=== PATIENT | female | born 2000 | race Hispanic/Latino ===

== ENCOUNTER 2019-03-21 21:17 | Emergency (ER) | payer BC, SELFPAY ==
[2019-03-21 22:33] LABS: Urine Blood 3+ (NEG); Urine Glucose NEGATIVE (NEG); Urine Protein 2+ (NEG); Urine pH 7.5 (5.0-7.0)
[2019-03-21 22:50] LABS: Absolute Lymphocytes (CBC) 2.7 K/uL (0.7-4.9); Absolute Monocytes 0.8 K/uL (0.1-1.3); Absolute Neutrophil 9.5 K/uL (1.8-8.0); Basophils % 0.5 % (0-1.3); Eosinophils % 1.7 % (0-4.4); Hematocrit 39.3 % (36.0-45.0); Lymphocytes % 20.3 % (15.3-44.8); Monocytes % 5.8 % (3.3-12.3); RBC Red Blood Cell Count 4.42 M/uL (3.86-4.86)
[2019-03-21] MEDS ORDERED: ONDANSETRON 4 MG/2 ML VIAL ONE (22:52)
[2019-03-21] MEDS ORDERED: MORPHINE 4 MG/ML SYR ONE (22:52)
[2019-03-21 23:04] LABS: Urine Bacteria LOADED /HPF (<20); Urine Culture Reflex Order NOT NEEDED; Urine RBC 20-50 /HPF (NONE SEEN)
[2019-03-21 23:05] LABS: ALT/SGPT 25 U/L (12-78); AST/SGOT 13 U/L (15-37); Albumin 3.5 g/dL (3.4-5.0); Alkaline Phosphatase 83 U/L (45-117); BUN Blood Urea Nitrogen 10 mg/dL (7-18); Bicarbonate 30 mmol/L (21-32); Bilirubin Direct < 0.1 mg/dL (0-0.2); Bilirubin Total 0.2 mg/dL (0.2-1.0); Glucose Level 116 mg/dL (74-106); Lipase 84 U/L (73-393); Potassium 3.9 mmol/L (3.5-5.1); Protein, Total 7.4 g/dL (6.4-8.2); Sodium Level 142 mmol/L (136-145)
[2019-03-22] MEDS ORDERED: KETOROLAC 30 MG/ML INJ ONE (00:33)
--- NOTE | 2019-03-22 00:45 | EDPHYS ---
Physician Documentation [facility] Name: Angelo Harrison Age: 19 yrs Sex: Female : 2000 Arrival Date: 03/21/2019 Time: 21:19 Bed 30 Private MD: ED Physician Derick Coon HPI: 03/21 22:31 This 19 yrs old Female presents to ER via Ambulatory with complaints of Pelvic jmm Pain, Back Pain. 22:31 The patient presents with pelvic pain. Onset: The symptoms/episode began/occurred jmm gradually, 1 week(s) ago. Associated signs and symptoms: Pertinent positives: dysuria. This is a 19 year old female with no chronic medical conditions that presents to the ED with complaints of painful urination for the past week with pelvic pain beginning today. Pain is localized to the left side. Denies vomiting or diarrhea. Admits to vaginal discharge and recent unprotected intercourse. . 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 - Social history:: Smoking status: Patient uses tobacco products, denies chronic smoking, but will smoke occasionally. - Ebola Screening: : No symptoms or risks identified at this time. ROS: 22:31 Constitutional: Negative for fever, chills, and weight loss, Cardiovascular: Negative jmm for chest pain, palpitations, and edema, Respiratory: Negative for shortness of breath, cough, wheezing, and pleuritic chest pain. 22:31 Abdomen/GI: Positive for abdominal pain. 22:31 : Positive for urinary symptoms. 22:31 All other systems are negative. Exam: 22:31 Constitutional: This is a well developed, well nourished patient who is awake, alert, jmm and in no acute distress. Head/Face: atraumatic. Eyes: EOMI, no conjunctival erythema appreciated ENT: Moist Mucus Membranes Neck: Trachea midline, Supple Chest/axilla: Normal chest wall appearance and motion. Cardiovascular: Regular rate and rhythm. No edema appreciated Respiratory: Normal respirations, no respiratory distress appreciated 22:31 Abdomen/GI: Inspection: abdomen appears normal, Bowel sounds: normal, Palpation: soft, mild abdominal tenderness, in the left lower quadrant. 22:31 : Pelvic Exam: External exam: candidal lesions noted to the mons pubis. 22:31 : Pelvic Exam: Speculum exam: no bleeding is noted, no cervicitis, os that is closed, discharge, white. 22:31 Skin: Appearance: Color: normal in color. 22:31 Neuro: Orientation: is normal, Mentation: is normal, Memory: is normal. 22:31 Psych: Behavior/mood is pleasant, cooperative. Vital Signs: 21:31 BP 141 / 96; Pulse 68; Resp 18; Temp 98.3(O); Pulse Ox 99% on R/A; Weight 104.33 kg; tl2 Height 5 ft. 2 in. (157.48 cm); Pain 9/10; 21:53 Weight 106.32 kg; jb5 23:00 BP 114 / 63; Pulse 86; Resp 18; Pulse Ox 99% ; rv 03/22 00:00 BP 132 / 68; Pulse 71; Resp 16; Pulse Ox 100% ; rv 00:45 BP 128 / 78; Pulse 76; Resp 16; Pulse Ox 99% ; rv 03/21 21:53 Body Mass Index 42.87 (106.32 kg, 157.48 cm) jb5 MDM: 03/21 22:31 Patient medically screened. [facility] 03/22 00:43 Data reviewed: vital signs, nurses notes. Counseling: I had a detailed discussion with [facility] the patient and/or guardian regarding: the historical points, exam findings, and any diagnostic results supporting the discharge/admit diagnosis, lab results, radiology results, the need for outpatient follow up, to return to the emergency department if symptoms worsen or persist or if there are any questions or concerns that arise at home. 00:43 ED course: Patient is alert and non toxic in appearance in the ED. Patient treated for [facility] STI due to complaints of discharge and recent unprotected intercourse. Patient's pain is most likely due to cystitis. Patient advised to follow up with pcp or return to the ED if symptoms worsen. . 03/21 21:54 Order name: Urine Dipstick--Ancillary (enter results); Complete Time: 22:48 az 03/21 21:54 Order name: Urine --Ancillary (enter results); Complete Time: 22:48 az 03/21 21:54 Order name: Urine Culture banner 03/21 21:54 Order name: Urine Microscopic Only; Complete Time: 23:30 banner 03/21 22:32 Order name: Basic Metabolic Panel; Complete Time: 23:30 [facility] 03/21 22:32 Order name: CBC with Diff; Complete Time: 23:01 [facility] 03/21 22:32 Order name: Creatinine for Radiology; Complete Time: 23:30 [facility] 03/21 22:32 Order name: Hepatic Function; Complete Time: 23:30 [facility] 03/21 22:32 Order name: Lipase; Complete Time: 23:30 [facility] 03/21 22:32 Order name: GC (GONORR/CHLAMYDIA) Probe [facility] 03/21 22:32 Order name: CT Abd/Pelvis - W/Contrast [facility] 03/21 22:32 Order name: IV Saline Lock; Complete Time: 22:47 [facility] 03/21 22:32 Order name: Labs collected and sent; Complete Time: 22:47 [facility] 03/21 22:44 Order name: Pelvic Exam Setup; Complete Time: 22:51 [facility] Administered Medications: 03/21 22:40 Drug: morphine 4 mg Route: IVP; Site: right antecubital; rv 03/22 00:52 Follow up: Response: Pain is decreased rv 03/21 22:50 Drug: Zofran 4 mg Route: IVP; Site: right antecubital; rv 03/22 00:52 Follow up: Response: Pain is decreased rv 00:20 Drug: Ketorolac 30 mg Route: IVP; Site: right antecubital; ca1 00:53 Follow up: Response: Pain is decreased rv 00:45 Drug: DiFLUcan 150 mg Route: PO; rv 00:53 Follow up: Response: No adverse reaction rv 00:45 Drug: AZITHromycin 1 grams Route: PO; rv 00:53 Follow up: Response: No adverse reaction rv 00:45 Drug: Rocephin (cefTRIAXone) 250 mg Route: IM; Site: right deltoid; rv 00:54 Follow up: Response: No adverse reaction rv Disposition: 03/22/19 00:44 Discharged to Home. Impression: Cystitis. - Condition is Stable. - Discharge Instructions: Urinary Tract Infection, Adult. - Prescriptions for Macrobid 100 mg Oral Capsule - take 1 capsule by ORAL route every 12 hours for 7 days; 14 capsule. Clotrimazole 1 % Topical Cream - Apply to affected area 1 application by TOPICAL route every 12 hours; 15 gram. - Medication Reconciliation Form, Thank You Letter, Antibiotic Education, Prescription Opioid Use form. - Follow up: Private Physician; When: 2 - 3 days; Reason: Recheck today's complaints, Continuance of care, Re-evaluation by your physician. Signatures: Dispatcher [employer] EDMS Derrick Galloway PA PA jmm Knox, Taylor, RN RN tl2 Reza Qiu RN RN rv Sejal Paez RN RN ca1 Corrections: (The following items were deleted from the chart) 00:55 00:44 03/22/2019 00:44 Discharged to Home. Impression: Cystitis. Condition is Stable. rv Forms are Medication Reconciliation Form, Thank You Letter, Antibiotic Education, Prescription Opioid Use. Follow up: Private Physician; When: 2 - 3 days; Reason: Recheck today's complaints, Continuance of care, Re-evaluation by your physician. lindsay
--- NOTE | 2019-03-22 00:45 | ER ---
Nurse's Notes [facility] Name: Angelo Harrison Age: 19 yrs Sex: Female : 2000 Arrival Date: 03/21/2019 Time: 21:19 Bed 30 Private MD: Diagnosis: Cystitis Presentation: 03/21 21:30 Presenting complaint: Patient states: left flank pain that radiates to front since tl2 Wednesday. Reports burning with urination. Denies fever, vomiting. Reports nausea. Transition of care: patient was not received from another setting of care. Onset of symptoms was March 15, 2019. Risk Assessment: Do you want to hurt yourself or someone else? Patient reports no desire to harm self or others. Initial Sepsis Screen: Does the patient meet any 2 criteria? No. Patient's initial sepsis screen is negative. Does the patient have a suspected source of infection? No. Patient's initial sepsis screen is negative. Care prior to arrival: None. 21:30 Method Of Arrival: Ambulatory tl2 21:30 Acuity: KAROL 3 tl2 Triage Assessment: 21:31 General: Appears in no apparent distress. uncomfortable, Behavior is calm, cooperative, tl2 appropriate for age. Pain: Complains of pain in left flank Pain radiates to left lower quadrant. 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 - Social history:: Smoking status: Patient uses tobacco products, denies chronic smoking, but will smoke occasionally. - Ebola Screening: : No symptoms or risks identified at this time. Screenin:06 Abuse screen: Denies threats or abuse. Denies injuries from another. Nutritional rv screening: No deficits noted. Tuberculosis screening: No symptoms or risk factors identified. Fall Risk None identified. Assessment: 22:05 General: Appears in no apparent distress. uncomfortable, Behavior is calm, cooperative. rv Pain: Complains of pain in abdomen and left lower quadrant. Neuro: Level of Consciousness is awake, alert, obeys commands, Oriented to person, place, time, situation. Cardiovascular: Capillary refill < 3 seconds. Respiratory: Airway is patent. GI: Reports lower abdominal pain. : No signs and/or symptoms were reported regarding the genitourinary system. EENT: No signs and/or symptoms were reported regarding the EENT system. Derm: Skin is intact. Musculoskeletal: No signs and/or symptoms reported regarding the musculoskeletal system. 23:27 Reassessment: Patient appears in no apparent distress at this time. Patient and/or rv family updated on plan of care and expected duration. Pain level reassessed. Patient is alert, oriented x 3, equal unlabored respirations, skin warm/dry/pink. patient is for pelvic exam. awaiting ZOHAIB Meza>. Vital Signs: 21:31 BP 141 / 96; Pulse 68; Resp 18; Temp 98.3(O); Pulse Ox 99% on R/A; Weight 104.33 kg; tl2 Height 5 ft. 2 in. (157.48 cm); Pain 9/10; 21:53 Weight 106.32 kg; jb5 23:00 BP 114 / 63; Pulse 86; Resp 18; Pulse Ox 99% ; rv 05 00:00 BP 132 / 68; Pulse 71; Resp 16; Pulse Ox 100% ; rv 00:45 BP 128 / 78; Pulse 76; Resp 16; Pulse Ox 99% ; rv 03/21 21:53 Body Mass Index 42.87 (106.32 kg, 157.48 cm) jb5 ED Course: 03/21 21:19 Patient arrived in ED. es 21:31 Triage completed. tl2 21:31 Arm band placed on right wrist. tl2 21:38 Maria Dolores Poe, RN is Primary Nurse. tl2 21:54 Urine Dipstick--Ancillary (enter results) Sent. jb5 21:54 Urine --Ancillary (enter results) Sent. jb5 22:05 Reza Qiu, MONIKA is Primary Nurse. rv 22:06 Patient has correct armband on for positive identification. Bed in low position. Call rv light in reach. Side rails up X 1. Pulse ox on. NIBP on. 22:22 Derrick Galloway PA is PHCP. [facility] 22:22 Derick Coon MD is Attending Physician. [facility] 22:27 Urine Microscopic Only Sent. rv 22:28 Urine Culture Sent. rv 22:36 Inserted saline lock: 20 gauge in right antecubital area, using aseptic technique. jb5 Blood collected. 22:37 Radiology exam delayed due to lab results not completed at this time. (BUN/Creatinine). vm2 22:47 Basic Metabolic Panel Sent. jb5 22:47 CBC with Diff Sent. jb5 22:47 Creatinine for Radiology Sent. jb5 22:47 Hepatic Function Sent. jb5 22:47 Lipase Sent. jb5 23:36 CT Abd/Pelvis - W/Contrast In Process Unspecified. EDMS 03/22 00:54 No provider procedures requiring assistance completed. IV discontinued, intact, rv bleeding controlled, No redness/swelling at site. Pressure dressing applied. Administered Medications: 03/21 22:40 Drug: morphine 4 mg Route: IVP; Site: right antecubital; rv 03/22 00:52 Follow up: Response: Pain is decreased rv 03/21 22:50 Drug: Zofran 4 mg Route: IVP; Site: right antecubital; rv 03/22 00:52 Follow up: Response: Pain is decreased rv 00:20 Drug: Ketorolac 30 mg Route: IVP; Site: right antecubital; ca1 00:53 Follow up: Response: Pain is decreased rv 00:45 Drug: DiFLUcan 150 mg Route: PO; rv 00:53 Follow up: Response: No adverse reaction rv 00:45 Drug: AZITHromycin 1 grams Route: PO; rv 00:53 Follow up: Response: No adverse reaction rv 00:45 Drug: Rocephin (cefTRIAXone) 250 mg Route: IM; Site: right deltoid; rv 00:54 Follow up: Response: No adverse reaction rv Outcome: 00:44 Discharge ordered by MD. montoya 00:54 Discharged to home ambulatory. rv 00:54 Condition: good 00:54 Discharge instructions given to patient, Instructed on discharge instructions, follow up and referral plans. medication usage, Demonstrated understanding of instructions, follow-up care, medications, Prescriptions given X 2. 00:55 Patient left the ED. rv Signatures: Dispatcher [employer] EDIA Derrick Galloway PA PA jmm Salyer, Edna es Knox, Taylor, RN RN tl2 Taylor Garsia jb5 Shirley Leigh 2 Reza Qiu RN RN rv RandyobSejal RN RN ca1 Corrections: (The following items were deleted from the chart) 03/21 22:06 22:05 GI: No signs and/or symptoms were reported involving the gastrointestinal system. rv rv
[2019-03-22] MEDS ORDERED: FLUCONAZOLE 100 MG TAB ONE (00:53)
[2019-03-22] MEDS ORDERED: AZITHROMYCIN 250 MG TAB ONE (00:53)
[2019-03-22] MEDS ORDERED: WATER FOR INJ,STERILE 10 ML ONE (00:54)
[2019-03-22] MEDS ORDERED: CEFTRIAXONE 250 MG/VIAL ONE (00:54)
--- NOTE | 2019-03-22 12:13 | RAD REPORT ---
EXAM DESCRIPTION: CT - Abdomen Pelvis W Contrast - 03/22/2019 1:50 am CLINICAL HISTORY: The patient is 19 years old and is Female; left lower abdominal pain EXAM: CT ABDOMEN PELVIS WITH IV CONTRAST COMPARISON: One. FINDINGS: Hepatomegaly measuring 22 cm with hepatic steatosis. The appendix is seen and is within normal limits. Small amount of endometrial fluid. Bilateral ovarian cysts measuring up to 3 cm on the left. Mild left hydronephrosis and hydroureter with suggested urothelial enhancement/thickening. No uretera l stone. No perinephric stranding. Mild wall thickening of the urinary bladder. No intraluminal stone. IMPRESSION: Impression. Mild left hydronephrosis, hydroureter and urothelial thickening/enhancement without intraluminal stone. Findings could be due to recently passed stone or infectious process. Impression. Mild urinary bladder wall thickening. No pericecal stranding. Correlate with urinalysis. Impression. Hepatomegaly and hepatic steatosis. Impression. Small amount of endometrial fluid in bilateral ovarian cysts measuring up to 3 cm on the left. Electronically signed by: Miguel Fields DO 03/21/2019 11:48 PM CDT Due to temporary technical issues with the PACS/Fluency reporting system, reports are being signed by the in house radiologist as a courtesy to ensure prompt reporting. The interpreting radiologist is f ully responsible for the content of the report.
== END 2019-03-22 00:55 | disposition home or self-care (01) ==
LOC: ER 21:17
DX: N30.90 Cystitis, unspecified without hematuria (principal); Z72.0 Tobacco use; Z91.018 Allergy to other foods
CPT/HCPCS: 36415; 74177; 80048; 80076; 81003; 81015; 81025; 83690; 85025; 87077; 87086; 87088; 87186; 87490; 87590; 96372; 96374; 96375; 99284; J0696; J2405; Q9967

== ENCOUNTER 2021-03-31 12:23 | Emergency (ER) | payer SELFPAY ==
--- OUTSIDE RECORDS SUMMARY | 2021-03-31 12:25 | XMS REPORT | Continuity of Care Document ---
:2000 Author Organization [facility] t Address [address] [place] [address] [address]. [address] [place] [address] Care Team Providers Name Role Phone Pcp, Does Not Have A Attending Clinician Angel MILLER Attending Clinician Problems This patient has no known problems. Allergies, Adverse Reactions, Alerts This patient has no known allergies or adverse reactions. Medications This patient has no known medications. Procedures This patient has no known procedures. Encounters Start End Encounter Admission Attending Care Care Encounter Source Date/Time Date/Time Type Type Clinicians Facility Department ID 2021-02-27 2021-02-27 Telephone Pcp, [facility] [id number] 00:00:00 00:00:00 Patient [employer] [id number] Does On license of [facility] [id number] Have A MATERNAL [id number] & CHILD [address] [place] [address] 2021-02-18 2021-02-18 Emergency LEOBARDO Ortiz [id number] 13:23:00 16:58:00 [facility] [id number] [place] [id number] [place] [phone] [id number] Results This patient has no known results.
[2021-03-31 14:07] LABS: Urine Blood Trace-lysed (Negative); Urine Glucose Negative (Negative); Urine Protein Negative (Negative); Urine Specific Gravity 1.025 (1.005-1.030)
[2021-03-31 14:44] LABS: Absolute Lymphocytes (CBC) 2.8 K/uL (0.7-4.9); Basophils % 0.4 % (0-1.3); Hematocrit 40.8 % (36.0-45.0); Lymphocytes % 20.4 % (15.3-44.8); MPV 9.1 fL (7.6-11.3); RBC Red Blood Cell Count 4.52 M/uL (3.86-4.86)
[2021-03-31 14:44] LABS: Urine Specific Gravity/Preg 1.025 (1.005-1.030)
[2021-03-31] MEDS ORDERED: NA CHLORIDE 0.9% 1,000 ML ONE (15:02)
[2021-03-31] MEDS ORDERED: KETOROLAC 30 MG/ML INJ ONE (15:02)
[2021-03-31 15:13] LABS: ALT/SGPT 28 U/L (12-78); AST/SGOT 8 U/L (15-37); Albumin 3.5 g/dL (3.4-5.0); Alkaline Phosphatase 69 U/L (45-117); BUN Blood Urea Nitrogen 9 mg/dL (7-18); Bicarbonate 27 mmol/L (21-32); Bilirubin Direct 0.1 mg/dL (0-0.2); Bilirubin Total 0.3 mg/dL (0.2-1.0); Glucose Level 99 mg/dL (74-106); Lipase 71 U/L (73-393); Protein, Total 7.4 g/dL (6.4-8.2); Sodium Level 140 mmol/L (136-145)
--- NOTE | 2021-03-31 15:37 | RAD REPORT ---
EXAM DESCRIPTION: CTAbdomen Pelvis W Contrast - 03/31/2021 3:25 pm CLINICAL HISTORY: Abdominal pain. ABD PAIN COMPARISON: Abdomen Pelvis W Contrast dated 03/21/2019 TECHNIQUE: Biphasic CT imaging of the abdomen and pelvis was performed with 100 ml non-ionic IV cont rast. All CT scans are performed using dose optimization technique as appropriate and may include automated exposure control or mA/KV adjustment according to patient size. FINDINGS: The lung bases are clear. The liver, spleen, pancreas, adrenal glands and kidneys are within normal limits. No bowel obstruction, free air, free fluid or abscess. Scattered colonic diverticulosis. The appendix is normal. No evidence of significant lymphadenopathy. No suspicious bony findings. IMPRESSION: No acute intra-abdominal or pelvic finding.
[2021-03-31 16:37] LABS: Urine Bacteria NONE SEEN /HPF (<20); Urine RBC <5 /HPF (NONE SEEN)
[2021-03-31] MEDS ORDERED: DICYCLOMINE HCL 10 MG CAP ONE (16:40)
--- NOTE | 2021-03-31 16:50 | EDPHYS ---
Physician Documentation [facility] Name: Angelo Harrison Age: 21 yrs Sex: Female : 2000 Arrival Date: 03/31/2021 Time: 12:25 Bed 17 Private MD: ED Physician Ismael Morgan HPI: 03/31 15:26 This 21 yrs old Female presents to ER via Wheelchair with complaints of Pelvic pm1 Pain, Abdominal Pain. 15:26 The patient presents with abdominal pain in the lower abdomen, left flank area. Onset: pm1 The symptoms/episode began/occurred today. The symptoms do not radiate. Associated signs and symptoms: none. Pertinent negatives: nausea, vomiting, and diarrhea, chest pain, dysuria, fever, shortness of breath. The symptoms are described as achy, constant. Modifying factors: The symptoms are alleviated by remaining still, the symptoms are aggravated by coughing, movement. Severity of pain: in the emergency department the pain is actually worse. The patient has not experienced similar symptoms in the past. The patient has not recently seen a physician. patient with miscarriage 3-4 weeks ago. 2 Negative tests after vaginal bleeding. 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 - Social history:: Smoking status: Patient reports the use of cigarette tobacco products, denies chronic smoking, but will smoke occasionally. ROS: 15:26 Constitutional: Negative for fever, chills, and weight loss, Eyes: Negative for injury, pm1 pain, redness, and discharge, ENT: Negative for injury, pain, and discharge, Neck: Negative for injury, pain, and swelling, Cardiovascular: Negative for chest pain, palpitations, and edema, Respiratory: Negative for shortness of breath, cough, wheezing, and pleuritic chest pain. 15:26 : Negative for injury, bleeding, discharge, and swelling, MS/Extremity: Negative for injury and deformity, Skin: Negative for injury, rash, and discoloration, Neuro: Negative for headache, weakness, numbness, tingling, and seizure. 15:26 Abdomen/GI: Positive for abdominal pain, of the right lower quadrant and left lower quadrant, Negative for nausea, vomiting, and diarrhea. 15:26 Back: Positive for flank pain, on the left. Exam: 15:26 Constitutional: This is a well developed, well nourished patient who is awake, alert, pm1 and in no acute distress. Head/Face: Normocephalic, atraumatic. Eyes: Pupils equal round and reactive to light, extra-ocular motions intact. Lids and lashes normal. Conjunctiva and sclera are non-icteric and not injected. Cornea within normal limits. Periorbital areas with no swelling, redness, or edema. 15:26 Neck: Trachea midline, no thyromegaly or masses palpated, and no cervical lymphadenopathy. Supple, full range of motion without nuchal rigidity, or vertebral point tenderness. No Meningismus. Chest/axilla: Normal chest wall appearance and motion. Nontender with no deformity. No lesions are appreciated. 15:26 Skin: Warm, dry with normal turgor. Normal color with no rashes, no lesions, and no evidence of cellulitis. MS/ Extremity: Pulses equal, no cyanosis. Neurovascular intact. Full, normal range of motion. 15:26 ENT: External ear(s): are unremarkable, Mouth: Oral mucosa: normal, pink and intact, moist, Voice: no acute changes. 15:26 Cardiovascular: Rate: normal, Rhythm: regular, Pulses: no pulse deficits are appreciated. 15:26 Respiratory: Exam negative for acute changes, respiratory distress, shortness of breath, Breath sounds: are clear throughout. 15:26 Abdomen/GI: Inspection: abdomen appears normal, Palpation: abdomen is soft and non-tender, in all quadrants. 15:26 Back: muscle spasm, is appreciated in the left low back. 15:26 Neuro: Exam negative for acute changes, Orientation: is normal, Mentation: is normal, Motor: is normal, moves all fours, Sensation: is normal, no obvious gross deficits, Gait: is steady, at a normal pace, without difficulty. Vital Signs: 13:20 BP 119 / 82; Pulse 72; Resp 16 S; Temp 97.6(TE); Pulse Ox 99% on R/A; Weight 99.79 kg jd3 (R); Height 5 ft. 2 in. (157.48 cm) (R); Pain 7/10; 13:57 BP 125 / 75; Pulse 80; Resp 18; Pulse Ox 100% ; tr6 13:20 Body Mass Index 40.24 (99.79 kg, 157.48 cm) jd3 MDM: 14:05 Patient medically screened. pm1 16:02 Data reviewed: vital signs. Data interpreted: Pulse oximetry: on room air is 100 %. pm1 Interpretation: normal. 16:49 Counseling: I had a detailed discussion with the patient and/or guardian regarding: the pm1 historical points, exam findings, and any diagnostic results supporting the discharge/admit diagnosis, lab results, radiology results, the need for outpatient follow up, to return to the emergency department if symptoms worsen or persist or if there are any questions or concerns that arise at home. 03/31 14:06 Order name: Urine Dipstick-Ancillary; Complete Time: 14:16 EDMS 03/31 14:12 Order name: Urine --Ancillary (enter results) bd 03/31 14:13 Order name: Urine --Ancillary; Complete Time: 15:43 EDMS 03/31 14:18 Order name: Basic Metabolic Panel; Complete Time: 15:43 pm1 03/31 14:18 Order name: CBC with Diff; Complete Time: 15:43 pm1 03/31 14:18 Order name: Hepatic Function; Complete Time: 15:43 pm1 03/31 14:18 Order name: Lipase; Complete Time: 15:43 pm1 03/31 14:18 Order name: IV Saline Lock; Complete Time: 14:36 pm1 03/31 14:18 Order name: Labs collected and sent; Complete Time: 14:36 pm1 03/31 14:18 Order name: CT Abd/Pelvis - IV Contrast Only; Complete Time: 15:43 pm1 03/31 16:09 Order name: Urine Microscopic Only; Complete Time: 16:49 pm1 Administered Medications: 14:46 Drug: TORadol (ketorolac) 30 mg Route: IVP; Site: right antecubital; tr6 15:06 Follow up: Response: No adverse reaction; Pain is decreased tr6 16:23 Drug: Bentyl (dicyclomine) 20 mg Route: PO; tr6 16:48 Follow up: Response: Pain is decreased tr6 Disposition: 17:36 Co-signature as Attending Physician, Ismael Morgan MD. rn Disposition: 03/31/21 16:49 Discharged to Home. Impression: Unspecified abdominal pain. - Condition is Stable. - Discharge Instructions: Abdominal Pain, Adult. - Prescriptions for Bentyl 20 mg Oral Tablet - take 1 tablet by ORAL route every 6 hours As needed; 20 tablet. - Medication Reconciliation Form, Thank You Letter, Antibiotic Education, Prescription Opioid Use, Work release form form. - Follow up: Emergency Department; When: As needed; Reason: Worsening of condition. Follow up: Private Physician; When: 2 - 3 days; Reason: Recheck today's complaints, Continuance of care, Re-evaluation by your physician. - Problem is new. - Symptoms have improved. Signatures: Dispatcher [employer] EDMS Ismael Morgan MD MD rn Robert Bynum NP HOME VISITS NURSE pm1 Abdulkadir Patton RN RN jd3 Deidra Gonzales RN RN tr6 Corrections: (The following items were deleted from the chart) 17:19 16:49 03/31/2021 16:49 Discharged to Home. Impression: Unspecified abdominal pain. tr6 Condition is Stable. Forms are Medication Reconciliation Form, Thank You Letter, Antibiotic Education, Prescription Opioid Use. Follow up: Emergency Department; When: As needed; Reason: Worsening of condition. Follow up: Private Physician; When: 2 - 3 days; Reason: Recheck today's complaints, Continuance of care, Re-evaluation by your physician. Problem is new. Symptoms have improved. pm1
--- NOTE | 2021-03-31 16:50 | ER ---
Nurse's Notes [facility] Name: Angelo Harrison Age: 21 yrs Sex: Female : 2000 Arrival Date: 03/31/2021 Time: 12:25 Bed 17 Private MD: Diagnosis: Unspecified abdominal pain Presentation: 03/31 13:17 Chief complaint: Patient states: "I am having really bad stomach pain, that is in my jd3 upper back as well. yesterday I was just feeling drained, but today it has just gotten worse and with the pain. Possible miscarriage in February.". Coronavirus screen: At this time, the client does not indicate any symptoms associated with coronavirus-19. Ebola Screen: Patient negative for fever greater than or equal to 101.5 degrees Fahrenheit, and additional compatible Ebola Virus Disease symptoms. Initial Sepsis Screen: Does the patient meet any 2 criteria? No. Patient's initial sepsis screen is negative. Does the patient have a suspected source of infection? No. Patient's initial sepsis screen is negative. Risk Assessment: Do you want to hurt yourself or someone else? Patient reports no desire to harm self or others. Onset of symptoms was March 30, 2021. 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 - Social history:: Smoking status: Patient reports the use of cigarette tobacco products, denies chronic smoking, but will smoke occasionally. Screenin:58 Abuse screen: Denies threats or abuse. Denies injuries from another. Nutritional tr6 screening: No deficits noted. Tuberculosis screening: No symptoms or risk factors identified. Fall Risk None identified. Assessment: 13:56 General: Appears uncomfortable, obese, Behavior is calm, cooperative, appropriate for tr6 age. Pain: Complains of pain in LUQ of abdomen and left lower back pain beginning this morning. Neuro: No deficits noted. Cardiovascular: No deficits noted. Respiratory: No deficits noted. GI: Bowel sounds Abdomen is tender to palpation in LUQ. : No deficits noted. EENT: No deficits noted. Derm: No deficits noted. Musculoskeletal: No deficits noted. 15:20 Reassessment: pt transported to CT via wheelchair. tr6 15:31 Reassessment: pt returned to room from CT. tr6 17:15 Reassessment: Patient is alert, oriented x 3, equal unlabored respirations, skin tr6 warm/dry/pink. f/u care reviewed with pt. Vital Signs: 13:20 BP 119 / 82; Pulse 72; Resp 16 S; Temp 97.6(TE); Pulse Ox 99% on R/A; Weight 99.79 kg jd3 (R); Height 5 ft. 2 in. (157.48 cm) (R); Pain 7/10; 13:57 BP 125 / 75; Pulse 80; Resp 18; Pulse Ox 100% ; tr6 13:20 Body Mass Index 40.24 (99.79 kg, 157.48 cm) jd3 ED Course: 12:25 Patient arrived in ED. as 13:19 Triage completed. jd3 13:21 Arm band placed on. jd3 13:58 Robert Bynum, QUINN is PHCP. pm1 13:58 Patient has correct armband on for positive identification. Bed in low position. Call tr6 light in reach. Side rails up X 1. 13:58 No provider procedures requiring assistance completed. tr6 13:59 Ismael Morgan MD is Attending Physician. pm1 14:15 Urine --Ancillary Sent. tr6 14:15 Urine --Ancillary (enter results) Sent. tr6 14:35 Inserted saline lock: 20 gauge in right antecubital area, using aseptic technique. dh4 Blood collected. 15:26 CT Abd/Pelvis - IV Contrast Only In Process Unspecified. EDMS Administered Medications: 14:46 Drug: TORadol (ketorolac) 30 mg Route: IVP; Site: right antecubital; tr6 15:06 Follow up: Response: No adverse reaction; Pain is decreased tr6 16:23 Drug: Bentyl (dicyclomine) 20 mg Route: PO; tr6 16:48 Follow up: Response: Pain is decreased tr6 Outcome: 16:49 Discharge ordered by . pm1 17:19 Patient left the ED. tr6 Signatures: Dispatcher [employer] Zaida Sarmiento Patrick, QUINN TRACK REPAIR WORKER pm1 Abdulkadir Patton RN RN jd3 Broyd Hernandez 4 Deidra Gonzales RN RN tr6 Corrections: (The following items were deleted from the chart) 13:23 13:17 Chief complaint: Patient states: "I am having really bad stomach pain, that is in jd3 my upper back as well. yesterday I was just feeling drained, but today it has just gotten worse and with the pain." jd3
[2021-03-31 17:41] VITALS: TEMP 97.6
[2021-03-31 17:43] VITALS: BP 125/75; O2SAT 100
== END 2021-03-31 17:19 | disposition home or self-care (01) ==
LOC: ER 12:23
DX: R10.30 Lower abdominal pain, unspecified (principal); F17.210 Nicotine dependence, cigarettes, uncomplicated; Z91.02 Food additives allergy status
CPT/HCPCS: 36415; 74177; 80048; 80076; 81003; 81015; 81025; 83690; 85025; 96374; 99284; J7030; Q9967

== ENCOUNTER 2021-10-10 13:19 | Emergency (ER) | payer SELFPAY ==
--- OUTSIDE RECORDS SUMMARY | 2021-10-10 13:22 | XMS REPORT | Continuity of Care Document ---
:2000 Author Organization [facility] t Address [address] [place] [address] Care Team Providers Name Role Phone Angela METROLOGY TECHNICIAN Attending Clinician Fidel COSTELLO S Attending Clinician Roney Alvarado MD Attending Clinician Jocelynn PAREDES Attending Clinician Unavailable Pcp, Does Not Have A Attending Clinician ADSEBASTIAN, L Attending Clinician Unavailable Angel MILLER Attending Clinician BARBIE L Admitting Clinician Unavailable Roney Alvarado MD Admitting Clinician Payers Payer Name Policy Type Policy Number Effective Date Expiration Date S sean [facility] [id number] 2015 00:00:00 Problems Condition Condition Condition Status Onset Resolution Last Treating Co mments Source Name Details Category Date Date Treatment Clinician Date PID (acute PID (acute Disease Active U nivers pelvic pelvic 7-14 ity of inflammat[place] 00 Medical disease) disease) Branch Chlamydia Chlamydia Disease Active Uni vers trachomati trachomati 03-25 it y of s s 00:00: [place] infection infection 00 Medi morgan of lower of lower Branch genitourin genitourin antonina sites antonina sites History of History of Disease Active Overview : Univers sexually sexually 03-22 Formattin ity of transmitte transmitte 00:00: g of this [place] d disease d disease 00 note Medi morgan might be Branch different from the original. Trichomon as and Chlamydia - 2014 Irregular Irregular Disease Active Uni vers menstrual menstrual 03-22 ity of cycle cycle 00:00: [place] 00 Medical Branch General General Disease Active Univers counseling counseling 03-22 it y of for for 00:00: [place] prescripti prescripti 00 Me dical on of oral on of oral Br anch contracept contracept laura laura Trichomoni Trichomoni Disease Active U nivers asis asis 03-22 ity of 00:00: [place] 00 Medical Branch Yeast Yeast Disease Active Univers infection infection 03-22 ity of involving involving 00:00[place] the vagina the vagina 00 Me dical and and Branch surroundin surroundin g area g area Obesity Obesity Disease Active Overview: Univ ers 03-22 Formattin ity of 00:00: g of this note Medical might be Branch different from the original. ICD10 Diagnosis Term Residential Director Utility Allergies, Adverse Reactions, Alerts Allergy Allergy Status Severity Reaction(s) Onset Inactive Treating Comm ents Source Name Type Date Date Clinician CINNAMON DRUG Active SOB Univers INGREDI 9-25 ity of 00:00: [place] 00 [facility] Branch Cinnamon Propensi Active Shortness of Univers ty to Breath -25 ity of adverse 00:00: [place] reaction 00 Medical s Branch Social History Social Habit Start Date Stop Date Quantity Comments Source History of Cigarette Smoker Universi ty of tobacco use [facility] Exposure to Not sure [place] of SARS-CoV-2 [facility] (event) Branch Tobacco use and 2021-06-04 2021-06-04 Never used Universit y of exposure 00:00:00 00:00:00 [facility] Alcohol intake 2021-06-04 2021-06-04 Current University of 00:00:00 00:00:00 non-drinker of [facility] alcohol (finding) Branch Sex Assigned At [birth year] Universit y of 00:00:00 00:00:00 [facility] Smoking Status Start Date Stop Date Source Current every day smoker 2021-06-04 00:00:00 Uni versity of [facility] Medications Ordered Filled Start Stop Current Ordering Indication Dosage Frequency Signature Comments Components Source Medication Medication Date Date Medication? Clinician (SIG) Name Name ARIPiprazol Yes 15mg Take 15 mg Univers e (ABILIFY) 7-15 by mouth ity of 15 mg 19:04: daily. [place] tablet 52 [facility] ARIPiprazol Yes 15mg Take 15 mg Univers e (ABILIFY) 7-15 by mouth ity of 15 mg 19:04: daily. [place] tablet 52 Medical Branch doxycycline Yes [id number] 100mg Take 1 Univers hyclate 100 7-15 capsule by it y of mg capsule 00:00: mouth [place] 00 every 12 Medical (twelve) Branch hours. metroNIDAZO Yes [id number] 500mg Take 1 Univers LE 500 mg 7-15 tablet by ity o f tablet 00:00: mouth [place] 00 every 8 Medical (eight) Branch hours. doxycycline Yes 100mg 100 mg, Un gallo hyclate 7-15 Oral, ity of (Vibramycin 00:00: Q12H, [place] ) capsule 00 First dose Medi morgan 100 mg (after Branch last reorder) on Wed06/04/21 at 1900, Until Discontinu ed, LUCRECIA
Reason for Anti-Infec tive: Empiric Therapy for Suspected Infection< br>Empiric Therapy Site: Pelvic
Duration of therapy: 72 hours doxycycline Yes [id number] 100mg Take 1 Univers hyclate 100 7-15 capsule by it y of mg capsule 00:00: mouth [place] 00 every 12 Medical (twelve) Branch hours. metroNIDAZO Yes [id number] 500mg Take 1 Univers LE 500 mg 7-15 tablet by ity o f tablet 00:00: mouth [place] 00 every 8 Medical (eight) Branch hours. ibuprofen Yes 800mg 800 mg, Univ ers (IBU) 06-04 Oral, Q8H, ity of tablet 800 19:00: First dose [place] mg 00 (after Medical last Branch modificati on) on Wed06/04/21 at 1400, Until Discontinu ed, Routine cefOXitin Yes 2g 2 g, IV Unive rs in 06-04 Piggyback, ity of dextrose, 18:00: Q6H ABX, [place] iso-osm 00 First dose Medica l (MEFOXIN) 2 (after Branch gram/50 mL last DUPLEX BAG reorder) 2 g on Wed06/04/21 at 1300, Until Discontinu ed, 50 mL
Reas on for Anti-Infec tive: Empiric Therapy for Suspected Infection< br>Empiric Therapy Site: Pelvic
Duration of therapy: 72 hours acetaminoph Yes 650mg 650 mg, Un gallo en 06-04 Oral, ity of (TYLENOL) 14:19: Q6HPRN, [place] tablet 650 53 Starting Medic al mg [facility] Branch 06/04/21 at 0919, Until Discontinu ed, Routine, Pain (scale 1-3), Pain (scale 4-6) ondansetron Yes 4mg 4 mg, Slow Univers (ZOFRAN 06-04 IV Push, ity of (PF)) 14:18: Q6HPRN, [place] injection 4 09 Starting Medi morgan mg [facility] Branch 06/04/21 at 0918, Until Discontinu ed, Routine, Nausea and Vomiting (N/V) HYDROcodone Yes 1{tbl} 1 tablet, Univers -acetaminop 06-04 Oral, ity of hen (NORCO 14:17: Q6HPRN, [place] 5) 5-325 mg 30 Starting Medi morgan tablet 1 [facility] tablet 06/04/21 at 0917, Until Discontinu ed, Routine, Pain (scale 7-10) NaCl 0.9% 2020- No 1000mL at 999 Uni vers (NS) bolus 06-04 mL/hr, ity of infusion 14:00: 12:57 1,000 mL, Jose Maria as 1,000 mL 00 :00 IV Medical Infusion, Branch ONCE, 1 dose, [facility] 06/04/21 at 0900, STAT ketorolac 2020- No 30mg 30 mg, Unive rs (TORADOL) 06-04 Slow IV ity of injection 14:00: 12:50 Push, [place] 30 mg 00 :00 ONCE, 1 Medical dose, [facility] Branch 06/04/21 at 0900, LUCRECIA
Fa culty member approving Restricted medication : DOLORES HOGAN doxycycline 2020- No 100mg 100 mg, U amanda hyclate 06-04 Oral, ity of (Vibramycin 12:45: 12:10 ONCE, 1 [place] capsule 00 :00 dose, [facility] Medic al 100 mg 06/04/21 at Branch 0745, LUCRECIA
Re ason for Anti-Infec tive: Empiric Therapy for Suspected Infection< br>Empiric Therapy Site: Pelvic
Duration of therapy: 72 hours cefOXitin 2020- No 2g 2 g, IV Univ ers in 06-04 Piggyback, ity of dextrose, 12:45: 12:41 ONCE, 1 [place] iso-osm 00 :00 dose, Wed Medical (MEFOXIN) 2 06/04/21 at Br anch gram/50 mL 0745, 50 DUPLEX BAG mL
Reas 2 g on for Anti-Infec tive: Empiric Therapy for Suspected Infection< br>Empiric Therapy Site: Pelvic
Duration of therapy: 72 hours FENTanyl PF 2020- No 50ug 50 mcg, Un gallo (SUBLIMAZE 06-04 Slow IV ity o f (PF)) 12:00: 10:56 Push, [place] injection 00 :00 ONCE, 1 Medical 50 mcg dose, [facility] Branch 06/04/21 at 0700, Routine ondansetron 2020- No 4mg 4 mg, Slow Univers (ZOFRAN 06-04 IV Push, ity of (PF)) 10:30: 09:26 ONCE, 1 [place] injection 4 00 :00 dose, Wed Med ical mg 06/04/21 at Branch 0530, LUCRECIA FENTanyl PF 2020- No 50ug 50 mcg, Un gallo (SUBLIMAZE 06-04 Slow IV ity o f (PF)) 10:30: 09:26 Push, [place] injection 00 :00 ONCE, 1 Medical 50 mcg dose, [facility] Branch 06/04/21 at 0530, Routine ketorolac 2020- No 60mg 60 mg, Unive rs (TORADOL) 06-04 Intramuscu ity of injection 09:15: 08:15 lar, ONCE, [place] 60 mg 00 :00 1 dose, Medical [facility] Branch 06/04/21 at 0415, LUCRECIA
Fa culty member approving Restricted medication : NICK PARRA ceFAZolin 2020- No 1000mg 1,000 mg, Univers (ANCEF) 02-18 03-30 IV ity of 1,000 mg in 20:45: 20:49 Piggyback, [place] NaCl 0.9% 00 :00 ONCE, 1 Medical (NS) 50 mL dose, Tue Bran ch MINI-BAG 02/18/21 at 1545, 50 mL
Reas on for Anti-Infec tive: Documented Infection< br>Documen shelby Infection Site: Urine
D uration of Therapy: 7 days NaCl 0.9% 2020- No 1000mL at 999 Uni vers (NS) bolus 02-18 03-30 mL/hr, ity of infusion 19:00: 21:56 1,000 mL, [place] as 1,000 mL 00 :00 IV Medical Infusion, Branch ONCE, 1 dose, 02/18/21 at 1400, LUCRECIA cephALEXin 2020- No [id number] 500mg Take 1 Univers (KEFLEX) 02-18 04-07 capsule by ity of 500 mg 00:00: 04:59 mouth 2 [place] capsule 00 :00 (two) Medical times [place] daily for 7 days. ARIPiprazol Yes 15mg Take 15 mg Univers e (ABILIFY) 9-26 by mouth ity of 15 mg 05:56: daily. [address] ARIPiprazol Yes 15mg Take 15 mg Univers e (ABILIFY) 9-26 by mouth ity of 15 mg 05:56: daily. [address] predniSONE Yes 40 mg po Uni vers (DELTASONE) 9-25 qd ity of 10 mg 00:00: [place] tablet [address] [place] [address] predniSONE Yes 40 mg po Uni vers (DELTASONE) 9-25 qd ity of 10 mg 00:00: [place] tablet [address] [place] [address] predniSONE Yes 40 mg po Uni vers (DELTASONE) 9-25 qd ity of 10 mg 00:00: [place] tablet [address] [place] [address] predniSONE Yes 40 mg po Uni vers (DELTASONE) 9-25 qd ity of 10 mg 00:00: [place] tablet [address] [place] [address] norgestimat Yes [id number] 1{tbl} Take 1 Tab Univers e-ethinyl 4-29 by mouth ity of estradiol 00:00: daily. [place] (SPRINTEC) 00 Medical 0.25-35 Branch mg-mcg per tablet norgestimat Yes [id number] 1{tbl} Take 1 Tab Univers e-ethinyl 4-29 by mouth ity of estradiol 00:00: daily. [place] ([facility]) 00 Medical 0.25-35 Branch mg-mcg per tablet norgestimat Yes [id number] 1{tbl} Take 1 Tab Univers e-ethinyl 4-29 by mouth ity of estradiol 00:00: daily. [place] ([facility]) 00 Medical 0.25-35 Branch mg-mcg per tablet norgestimat Yes [id number] 1{tbl} Take 1 Tab Univers e-ethinyl 4-29 by mouth ity of estradiol 00:00: daily. [place] ([facility]) 00 Medical 0.25-35 Branch mg-mcg per tablet Immunizations Ordered Filled Immunization Date Status Comments [facility] Immunization Name Name [facility] 2013-06-28 Completed [facility] 00:00:00 [facility] 2013-06-28 Completed [facility] 00:00:00 [facility] 2013-06-28 Completed [facility] 00:00:00 [facility] 2013-06-28 Completed [facility] 00:00:00 [facility] Vital Signs Vital Name Observation Time Observation Value Comments Source Systolic blood 2021-06-05 17:35:00 126 mm[Hg] Univer sity of [facility] Diastolic blood 2021-06-05 17:35:00 77 mm[Hg] Unive rsity of [facility] Heart rate 2021-06-05 17:35:00 78 /min [facility] Body temperature 2021-06-05 17:35:00 36.94 Marybeth [facility] Respiratory rate 2021-06-05 17:35:00 18 /min [facility] Oxygen saturation in 2021-06-05 09:10:00 100 /min [facility] Arterial blood by [facility] Pulse oximetry Branch Body weight 2021-06-04 07:58:00 102.059 kg [facility] Systolic blood 2021-02-18 20:34:00 132 mm[Hg] Univer sity of pressure [facility] Diastolic blood 2021-02-18 20:34:00 96 mm[Hg] Unive rsity of pressure [facility] Heart rate 2021-02-18 20:34:00 85 /min Universi ty of [facility] Respiratory rate 2021-02-18 20:34:00 14 /min [facility] Oxygen saturation in 2021-02-18 20:34:00 99 /min University of Arterial blood by [facility] Pulse oximetry Branch Body temperature 2021-02-18 18:23:00 36.67 Marybeth [facility] Body weight 2021-02-18 18:23:[address] [facility] Systolic blood 2021-02-18 20:34:00 132 mm[Hg] Univer sity of [facility] Diastolic blood 2021-02-18 20:34:00 96 mm[Hg] Unive rsity of [facility] Heart rate 2021-02-18 20:34:00 85 /min Universi [facility] Respiratory rate 2021-02-18 20:34:00 14 /min [facility] Oxygen saturation in 2021-02-18 20:34:00 99 /min University of Arterial blood by [facility] Pulse oximetry Branch Body temperature 2021-02-18 18:23:00 36.67 Marybeth [facility] Body weight 2021-02-18 18:23:00 104.327 kg [facility] Procedures Procedure Date / Time Performing Clinician Source Performed CBC WITH DIFF 2021-06-05 09:08:[address] [facility] URINE CULTURE 2021-06-04 14:37:00 Nguyen Alvarado [facility] BLOOD CULTURE SCREEN 2021-06-04 12:09:00 Nick Parra [facility] COVID-19 (ID NOW RAPID 2021-06-04 12:09:00 Nick Parra [facility] TESTING) Medical Branch LAB ONLY COVID 2021-06-04 12:09:00 Nick Parra [facility] INTERPRETATION [facility] LACTIC ACID WHOLE BLOOD 2021-06-04 12:06:00 Nick Parra [facility] BLOOD CULTURE SCREEN 2021-06-04 11:53:00 Nick Parra [facility] ADC CLC OR LCC ONLY - WET 2021-06-04 11:35:00 [facility] GC & CHLAMYDIA AMPLIFIED 2021-06-04 11:27:00 [facility] OV[facility] 2021-06-04 10:48:05 Nick Parra [facility] COMP. METABOLIC PANEL 2021-06-04 08:53:00 Nick Parra [facility] ([id number]) [facility] CBC WITH DIFF 2021-06-04 08:53:00 Nick Parra [facility] CT ABDOMEN PELVIS WO 2021-06-04 08:36:57 Nick Parra [facility] CONTRAST [facility] URINALYSIS 2021-06-04 08:15:00 Nick Parra [facility] POCT TEST 2021-06-04 08:12:00 Nick Parra [facility] CONSENT/REFUSAL FOR 2021-06-04 07:42:40 Doctor Unassigned, [facility] DIAGNOSIS AND TREATMENT [place] [facility] Branch ABORH CONFIRMATION 2021-02-18 20:56:00 Tiat Ortiz [facility] HB ABO GROUPING 2021-02-18 20:24:00 Tita Ortiz [facility] US FIRST 2021-02-18 19:56:28 Tita Ortiz [facility] TRIMESTER LESS THAN 14 Medical B ranch WEEKS WITH TRANSVAGINAL BASIC METABOLIC PANEL 2021-02-18 19:23:00 Tita Ortiz [facility] (NA, K, CL, CO2, GLUCOSE, Medica l Branch BUN, CREATININE, CA) TOTAL BETA HCG ASSAY 2021-02-18 19:23:00 Tita Ortiz [facility] CBC WITH DIFF 2021-02-18 19:23:00 Tita Ortiz [facility] POCT TEST 2021-02-18 19:09:00 Tita Ortiz [facility] URINALYSIS 2021-02-18 18:47:00 Tita Ortiz [facility] NOTICE OF PRIVACY 2021-02-18 18:10:19 Doctor Unassigned, [facility] PRACTICES [place] [facility] Encounters Start End Encounter Admission Attending Care Care Encounter Source Date/Time Date/Time Type Type Clinicians Facility Department ID 2021-09-22 Outpatient X [facility] OBF [id number] Univers 08:28:34 ity [facility] 2021-09-22 Emergency [facility] [id number] Univers 08:00:07 ity [facility] 2021-09-21 Emergency [facility] [id number] Univers 09:32:22 ity [facility] 2021-06-06 2021-06-06 Transition Fifi Angela [id number] Univers 00:00:00 00:00:00 of Care Ivett Winkler [id number] ity of [place] 4.2.7.2.686 [facility] [id number] [facility] 403 Branch 2021-06-04 2021-06-05 [facility] [id number] Univers 02:48:00 14:03:00 Encounter MattsebastianNguyen [id number] ity of [place] 4.2.7.2.686 [facility] [id number] [facility] 083 Branch 2021-02-28 2021-02-28 Outpatient AKINSIPE, [facility] [id number] Univers 15:00:00 15:00:00 LINDY [id number] ity o f [facility] 2021-02-28 2021-02-28 Outpatient R AKINSIPE, [facility] [id number] Univers 14:00:00 14:00:00 LINDY ity o f [facility] 2021-02-27 2021-02-27 Telephone Pcp, [facility] [id number] 00:00:00 00:00:00 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 PUBLICATION 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 [id number] Does Not REGIONAL 4.2.7.2.686 Have A MATERNAL [id number] & CHILD [address] [place] [address] 2021-02-27 2021-02-27 Telephone Pcp, [facility] [id number] Univers 00:00:00 00:00:00 Patient PUBLICATION DIRECTOR [id number] it y of Does Not REGION[place].7.2.686 [place] A MATERNAL [id number] Med ical & CHILD [address] [place] [address] 2021-02-25 2021-02-25 Outpatient R ADUM, [facility] [id number] Univers 14:30:00 14:30:00 NGUYEN [id number] [facility] 2021-02-25 2021-02-25 Outpatient R ADUM, [facility] [id number] Univers 14:30:00 14:30:00 NGUYEN [facility] 2021-02-18 2021-02-18 Emergency [facility] [id number] 13:23:00 16:58:00 Tita [place] [id number] [place] 4.2.7.2.686 [place] [id number] [facility] 2021-02-18 2021-02-18 Emergency [facility] [id number] Univers 13:23:00 16:58:00 Tita [place] [id number] i ty of [place] 4.2.7.2.686 [facility] [id number] [address] Results Test Description Test Time Test Comments Results Result Comments Source URINE CULTURE 2021-06-05 17:04:43 Test Item Value Reference Range Interpretation Comme nts URINE CULTURE (test code = 630-4) No aerobic growth (< 1000 CFU/mL) [facility] [id number] 14:34:57COVID DMT InterpretationInterpretation/Recommendations:Molecular NAAT Tests for Active Infection with the SARS-CoV-2 Virus:The patient has currently tested negative for the SARS-CoV-2 virus that causesCOVID-19 illness. This most likely indicates that the patient does not have an active infection withthe SARS-CoV-2 virus. However, infection is not completely ruled out as the false negative rate for molecular NAAT testing using a nasopharyngeal sample can be up to 30%, mostly dependent on the timingof sample collection in relation to illness onset and any deficiencies in sampling techniques. If the patient has symptoms concerning for COVID-19 illness, a repeat NAAT test (PCR, Rapid ID Now, etc.) should be performed, at which time the SARS-CoV-2 virus - if present - may have reached a detectable viral load (usually peaking by the end of the first week of symptoms). Tests for IgM and/or IgG Antibodies to the SARS-CoV-2 Virus:If the patient develops COVID-19 illness in the future, testing for IgMand IgG antibodies approximately 3 weeks after illness onset will likely indicate if the patient hasproduced antibodies to the SARS-CoV-2 virus. However, some patients may take longer to develop detectable antibodies, while some patients who were infected with SARS-CoV-2 may never develop antibodies.While antibodies to SARS-CoV-2 may provide some degree of immunity, at this time the strength and duration of the antibody response is unknown. Interpretation Result Comments:These interpretation comments are based upon all COVID-19 testing the patient has had at [facility], including molecular NAAT testing (more commonly known as PCR testing and Rapid ID Now testing) and antibody testing. It does not take into account any testing that a patient has had outside of the [facility] medical record. [facility] LABORATORY SERVICESCOVID ResultsSARS- CoV-2 Rapid ID NOW (no units) ? ? Date ? Value ? 06/04/2021 ? Not Detected ? [facility] LABORATORY SERVICES [facility] WITH [id number] 09:55:27 Test Item Value Reference Range Interpretation Comments WBC (test code = See_Comment [Automated 6690-2) message] The sy stem which generated this result transmitted reference range : 4.30 - 11.10 10*3/?L. The reference range was not used to interpret this result as normal/abnormal . RBC (test code = See_Comment [Automated 789-8) message] The sy stem which generated this result transmitted reference range : 3.93 - 5.25 10*6/?L. The reference range was not used to interpret this result as normal/abnormal . HGB (test code = 13.0 g/dL 11.6-15.0 718-7) HCT (test code = 39.3 % 35.7-45.2 4544-3) MCV (test code = 90.3 fL 80.6-95.5 787-2) MCH (test code = 29.9 pg 25.9-32.8 785-6) MCHC (test code = 33.1 g/dL 31.6-35.1 786-4) RDW-SD (test code = 40.6 fL 39.0-49.9 26478-8) RDW-CV (test code = 12.4 % 12.0-15.5 788-0) PLT (test code = See_Comment [Automated 777-3) message] The sy stem which generated this result transmitted reference range : 166 - 358 10*3/ ?L. The reference r gerson was not used to interpret this result as normal/abnormal . MPV (test code = 10.5 fL 9.5-12.9 03859-0) NRBC/100 WBC (test See_Comment [Automat ed code = [id number]) message] The system which generated this result transmitted reference range : 0.0 - 10.0 /100 WBCs. The refer ence range was not u sed to interpret th is result as normal/abnormal . NRBC x10^3 (test code <0.01 See_Comment [Auto mated = [id number]) message] The s ystem which generated this result transmitted reference range : 10*3/?L. The reference range was not used to interpret this result as normal/abnormal . GRAN MAT (NEUT) % 50.1 % (test code = 770-8) IMM GRAN % (test code 0.80 % = 4671817761) LYMPH % (test code = 40.3 % 736-9) MONO % (test code = 6.2 % 5905-5) EOS % (test code = 2.2 % 713-8) BASO % (test code = 0.4 % 706-2) GRAN MAT x10^3(ANC) 4.72 10*3/uL 1.88-7.09 (test code = 6016513855) IMM GRAN x10^3 (test 0.08 10*3/uL 0.00-0.06 H code = 7775175878) LYMPH x10^3 (test code 3.81 10*3/uL 1.32-3.29 H = 731-0) MONO x10^3 (test code 0.59 10*3/uL 0.33-0.92 = 742-7) EOS x10^3 (test code = 0.21 10*3/uL 0.03-0.39 711-2) BASO x10^3 (test code 0.04 10*3/uL 0.01-0.07 = 704-7) Lab Interpretation Abnormal (test code = 22731-9) [facility] CHLAMYDIA AMPLIFIED [id number] 01:31:14 Test Item Value Reference Range Interpretation Comments C. trachomatis Nucleic Negative Negative Acid (test code = 38794-2) N. gonorrhoeae Nucleic Negative Negative Acid (test code = 37938-5) SHERRI (test code = SHERRI) Reliable results are dependent on adequate specimen collection. ? A positive result obtained from a patient after therapeutic treatment cannot be interpreted as indicating the presence of viable organisms. ?For patients on whom a false positive result may have adverse psychosocial impact, retesting is advised. Indeterminate: Unable to generate a valid test result on this specimen. ?Please submit a new specimen for repeat testing if clinically indicated. Chlamydia trachomatis/Neisseria gonorrhoeae nucleic acid amplification testing (NAAT) has not been validated for medico-legal specimens (sexual abuse in guillermo-pubertal and pre-pubertal children, sexual assault, and legal cases). ?Culture for Chlamydia trachomatis and/or Neisseria gonorrhoeae from clinically appropriate sites is the method of choice in these cases. ? Results from this testing should be interpreted in conjunction with other laboratory and clinical data available to the clinician.For females in general, a urine specimen is a second-line option because it is considered less sensitive than a cervical swab for Chlamydia trachomatis and/or Neisseria gonorrhoeae NAAT. Lab Interpretation Normal (test code = 88627-4) [facility] [id number] 15:07:47 Low suspicion for ovarian torsion based on ultrasound. Normal grayscale andspectral Doppler findings at both ovaries. Preliminary Report Dictated by Resident: Aamir Ross MD., have reviewed this study and agree with theabove report.US OVARY TORSION HISTORY: 21 years-old; Female; SEVERE PELVIC PAIN R/O Ovarian Torsion TECHNIQUE: Pelvic ultrasound performed using transabdominal andtransvaginal approach with grayscale, color, and spectral Doppler imagesobtained. COMPARISON: Pelvic ultrasound 02/18/2021 FINDINGS: UTERUS: The uterus measures 8.5 x 3.1 x 5.2 cm (70 mL). The endometrium ishomogeneous and measures 1.2 cm in thickness. OVARIES: The right ovary measures 3.0 x 2.2 x 2.0 cm (6. mL). The leftovary measures 2.8 x 2.2 x 1.6 cm (5.1 mL). No adnexal masses. The ovariesdemonstrate normal arterial and venous waveforms on spectral Dopplerimaging. CERVIX: Multiple small anechoic nabothian cysts are noted. FREE FLUID: Trace volume of simple anechoic free fluid is noted in [id number], likely physiologic. [facility], Radiant Results Inft User - 06/04/2021 10:08 AM CDT US OVARY TORSIONHISTORY: 21 years-old; Female; SEVERE PELVIC PAIN R/O Ovarian Torsion TECHNIQUE: Pelvic ultrasound performed using transabdominal andtransvaginal approach with grayscale, color, and spectral Doppler imagesobtained.COMPARISON: Pelvic ultrasound 02/18/2021FINDINGS: UTERUS: The uterus measures 8.5 x 3.1 x 5.2 cm (70 mL). The endometrium ishomogeneous and measures 1.2 cm in thickness.OVARIES: The right ovary measures 3.0 x 2.2 x 2.0 cm (6. mL). The leftovary measures 2.8 x 2.2 x 1.6 cm (5.1 mL). No adnexal masses. The ovariesdemonstrate normal arterial and venous waveforms on spectral Dopplerimaging.CERVIX: Multiple small anechoic nabothian cysts are noted.FREE FLUID: Trace volume of simple anechoic free fluid is noted in [id number]-av-crd, likely physiologic.IMPRESSIONLow suspicion for ovarian torsion based on ultrasound. Normal grayscale andspectral Doppler findings at both ovaries. Preliminary Report Dictated by Resident: Camila Santos, Aamir Comer MD., have reviewed this study and agree with theabove report.[facility] ABDOMEN PELVIS WO [id number] 13:45:39 1. ?No renal or ureteral stone. 2. ?Asymmetrical enlargement of the right ovary with nonspecific adnexalfat stranding. Pelvic ultrasound is recommended for further evaluation andto assess for suspected ovarian torsion. 3. ?Hepatomegaly and hepatic steatosis. The findings of this study, including suspected right ovarian torsion, havebeen discussed with and acknowledged by Dr. Parra over the phone on06/04/2021 at 3:45 AM with readback. Preliminary Report Dictated by Resident: Halle Ross MD., have reviewed this study and agree with theabove report.CT ABDOMEN PELVIS WO CONTRAST HISTORY: 21 years-old; Female; Flank pain, kidney stone suspected COMPARISON: None TECHNIQUE AND FINDINGS: Contiguous axial imaging from the level of the lungbases through the pubic symphysis was performed without the intravenousadministration of contrast. Coronal and sagittal reconstructions wereobtained. ?Auto mA and/or iterative reconstruction were used to reduceradiation dose. FINDINGS: LOWER THORAX: The lung bases are clear. No cardiomegaly. LIVER: Liver is enlarged measuring 21 cm craniocaudally. Hepatic parenchymais diffusely low attenuated. GALLBLADDER AND BILIARY TREE: No intra or extrahepatic biliary ductaldilation. No gallbladder wall thickening. SPLEEN: Unremarkable. PANCREAS: No ductal dilation or masses. ADRENAL GLANDS: No adrenal mass. KIDNEYS: No hydronephrosis or stones. PERITO NEUM AND RETROPERITONEUM: No free air or fluid collection. LYMPH NODES: No intra-abdominal or pelviclymph node enlargement. GI TRACT: No dilation or bowel wall thickening. Appendix is normal. PELVIS/BLADDER: Bladder is partially decompressed with no wall thickening.The uterus is unremarkable. Asymmetrical enlargement of the right ovary isnoted measuring 2.8 x 3.2 x 2.9 cm (TV, AP, CC). Nonspecific fat strandingis noted about the right adnexa. VESSELS: Unremarkable. BONES AND SOFT TISSUES: No suspicious lytic or sclerotic bony lesions. Lines/Tubes/Devices/Hardware: None [facility], Radiant Results Inft User - 06/04/2021 8:[address] ABDOMENPELVIS WO CONTRASTHISTORY: 21 years-old; Female; Flank pain, kidney stone suspected COMPARISON: NoneTECHNIQUE AND FINDINGS: Contiguous axial imaging from the level of the lungbases through the pubic symphysis was performed without the intravenousadministration of contrast. Coronal and sagittal reconstructions wereobtained. Auto mA and/or iterative reconstruction were used to reduceradiation dose.FINDINGS:LOWER THORAX: The lung bases are clear. No cardiomegaly.LIVER: Liver is enlarged measuring 21 cm craniocaudally. Hepatic parenchymais diffusely low attenuated.GALLBLADDER AND BILIARY TREE: No intra or extrahepatic biliary ductaldilation. No gallbladder wall thickening.SPLEEN: Unremarkable.PANCREAS: No ductal dilation or masses.ADRENAL GLANDS: No adrenal mass.KIDNEYS: No hydronephrosis or stones.PERITONEUM AND RETROPERITONEUM: No free air or fluid collection.LYMPH NODES: No intra-abdominal or pelvic lymph node enlargement.GI TRACT: No dilation or bowel wall thickening. Appendix is normal.PELVIS/BLADDER: Bladder is partially decompressed with no wall thickening.The uterus is unremarkable. Asymmetrical enlargement of the right ovary isnoted measuring 2.8 x 3.2 x 2.9 cm (TV, AP, CC). Nonspecificfat strandingis noted about the right adnexa.VESSELS: Unremarkable.BONES AND SOFT TISSUES: No suspicious lytic or sclerotic bony lesions.Lines/Tubes/Devices/Hardware: NoneIMPRESSION1. No renal or ureteral stone.2. Asymmetrical enlargement of the right ovary with nonspecific adnexalfat stranding. Pelvic ultrasound is recommended for further evaluation andto assess for suspected ovarian torsion.3. Hepatomegaly and hepatic steatosis.The findings of this study, including suspected right ovarian torsion, havebeen discussed with and acknowledged by Dr. Parra over the phone 06/04/2021 at 3:45 AM withreadback.Preliminary Report Dictated by Resident: Halle Davis MD., have reviewed this study and agree with theabove report.[facility]OVID[facility] (ID NOW RAPID TESTING)2021-06-04 12:36:34 Test Item Value Reference Range Interpretation Comments SARS-CoV-2 Rapid ID NOW Not Detected Not Detected (test code = 48680-1) SHERRI (test code = SHERRI) ID NOW COVID-19 Assay is an isothermal nucleic acid amplification test intended for the qualitative detection of nucleic acid from SARS-CoV-2 viral RNA in nasopharyngeal (REGISTRATION REP) specimens. It is used under Emergency Use Authorization (EUA) by FDA. The limit of detection (LOD) of the assay is 125 Genome Equivalents/mL. A positive result is indicative of the presence of SARS-CoV-2 RNA. ?Clinical correlation with patient history and other diagnostic information is necessary to determine patient infection status. A negative (Not Detected) result does not preclude SARS-CoV-2 infection. In patients with clinical symptoms and other tests that are consistent with SARS-CoV-2 infection, negative results should be treated as presumptive negative and a new specimen should be tested with alternative PCR molecular test. Invalid: Please collect a new specimen for repeat patient testing if clinically indicated. Lab Interpretation Normal (test code = 46930-0) [facility]iscoLactic Acid Whole [id number] 12:13:10 Test Item Value Reference Range Interpretation Comments LACTIC ACID (test code = 1.55 mmol/L 0.50-2.20 8210701637) Lab Interpretation (test code = Normal 36337-1) [facility] ONLY - WET [id number] 12:12:54 Test Item Value Reference Range Interpretation Comments CLUE CELLS WET PREP (test code = Moderate None Seen HPF A 3285121949) BACTERIA WET PREP (test code = Moderate None Seen HPF A 7346071668) WBC WET PREP (test code = Few None Seen HPF A 6995166615) TRICHOMONAS WET PREP (test code = None Seen None Seen HPF 2697535321) YEAST WET PREP (test code = None Seen None Seen HPF 6395813608) Lab Interpretation (test code = Abnormal 46423-7) [facility] WITH [id number] 10:10:02 Test Item Value Reference Range Interpretation Comments WBC (test code = See_Comment H [Automated 6690-2) message] The system which generated this result transmit shelby reference range : 4.30 - 11.10 10*3/?L. The reference range was not used to interpret this result as normal/abnormal . RBC (test code = See_Comment [Automated 789-8) message] The system which generated this result transmit shelby reference range : 3.93 - 5.25 10*6/?L. The reference range was not used to interpret this result as normal/abnormal . HGB (test code = 13.6 g/dL 11.6-15.0 718-7) HCT (test code = 40.8 % 35.7-45.2 4544-3) MCV (test code = 89.3 fL 80.6-95.5 787-2) MCH (test code = 29.8 pg 25.9-32.8 785-6) MCHC (test code = 33.3 g/dL 31.6-35.1 786-4) RDW-SD (test code = 40.6 fL 39.0-49.9 37464-5) RDW-CV (test code = 12.5 % 12.0-15.5 788-0) PLT (test code = See_Comment [Automated 777-3) message] The system which generated this result transmit shelby reference range : 166 - 358 10*3/ ?L. The reference range was not u sed to interpret th is result as normal/abnormal . MPV (test code = 10.2 fL 9.5-12.9 42808-3) NRBC/100 WBC (test See_Comment [Automat ed code = 5932423169) message] The system which generated this result transmit shelby reference range : 0.0 - 10.0 /100 WBCs. The reference range was not used to interpret this result as normal/abnormal . NRBC x10^3 (test code <0.01 See_Comment [Auto mated = 4339010611) message] The system which generated this result transmit shelby reference range : 10*3/?L. The reference range was not used to interpret this result as normal/abnormal . GRAN MAT (NEUT) % 82.6 % (test code = 770-8) IMM GRAN % (test code 0.80 % = 0228764177) LYMPH % (test code = 11.2 % 736-9) MONO % (test code = 4.5 % 5905-5) EOS % (test code = 0.5 % 713-8) BASO % (test code = 0.4 % 706-2) GRAN MAT x10^3(ANC) 16.12 10*3/uL 1.88-7.09 H (test code = 2926481080) IMM GRAN x10^3 (test 0.15 10*3/uL 0.00-0.06 H code = 5452945734) LYMPH x10^3 (test code 2.18 10*3/uL 1.32-3.29 = 731-0) MONO x10^3 (test code 0.88 10*3/uL 0.33-0.92 = 742-7) EOS x10^3 (test code = 0.10 10*3/uL 0.03-0.39 711-2) BASO x10^3 (test code 0.07 10*3/uL 0.01-0.07 = 704-7) BANDS (test code = Increased A 4679405782) REACT LYMPHS (test Rare code = 0500982608) Lab Interpretation Abnormal (test code = 92207-2) [facility]. METABOLIC PANEL (40934)2021-06-04 09:30:18 Test Item Value Reference Range Interpretation Comments NA (test code = 138 mmol/L 135-145 9066088521) K (test code = 4.0 mmol/L 3.5-5.0 6483295569) CL (test code = 102 mmol/L 98-108 1801938255) CO2 TOTAL (test code = 26 mmol/L 23-31 6511575955) AGAP (test code = 2-16 7280959115) BUN (test code = 11 mg/dL 7-23 5536471288) GLUCOSE (test code = 117 mg/dL 70-110 H 7010372669) CREATININE (test code = 0.72 mg/dL 0.50-1.04 6230757679) TOTAL BILI (test code = 0.3 mg/dL 0.1-1.1 9039095751) CALCIUM (test code = 9.3 mg/dL 8.6-10.6 0125052201) T PROTEIN (test code = 8.1 g/dL 6.3-8.2 3665750505) ALBUMIN (test code = 4.4 g/dL 3.5-5.0 1111542133) ALK PHOS (test code = 73 U/L 34-122 5999789787) ALTv (test code = 24 U/L 5-35 1742-6) AST(SGOT) (test code = 25 U/L 13-40 3885545295) eGFR (test code = mL/min/1.73m2 2009042635) SHERRI (test code = SHERRI) Association of Glomerular Filtration Rate (GFR) and Staging of Kidney Disease* + --+ --+ ------+| GFR (mL/min/1.73 m2) ?| With Kidney Damage ?| ?Without Kidney Damage+ --------+ --------+ +| ?>90 ?| ?Stage one ?| ? Normal ?+ ---+ ---+ -------+| ?60-89 ?| ?Stage two ?| ? Decreased GFR ? + --+ --+ ------+| ?30-59 ?| ?Stage three ?| ? Stage three ? + --+ --+ ------+| ?15-29 ?| ?Stage four ? | ? Stage four ?+ ---+ ---+ -------+| ?<15 (or dialysis) ? ?| ?Stage five ? | ? Stage five ?+ ---+ ---+ -------+ *Each stage assumes the associated GFR level has been in effect for at least three months. ?Stages 1 to 5, with or without kidney disease, indicate chronic kidney disease. Notes: Determination of stages one and two (with eGFR >59mL/min/1.73 m2) requires estimation of kidney damage for at least three months as defined by structural or functional abnormalities of the kidney, manifested by either:Pathological abnormalities or Markers of kidney damage (including abnormalities in the composition of the blood or urine or abnormalities in imaging tests). Lab Interpretation Abnormal (test code = 72707-0) [facility] [id number] 09:11:43 Test Item Value Reference Range Interpretation Comments APPEARANCE (test code = Clear Clear 0922600711) COLOR (test code = Yellow Yellow 8959135468) PH (test code = 4.8-8.0 3300288993) SP GRAVITY (test code = 1.003-1.030 6849509661) GLU U QUAL (test code = Normal Normal 5779491329) BLOOD (test code = Negative Negative 6231959158) KETONES (test code = Negative Negative 7023455077) PROTEIN (test code = Negative Negative 2887-8) UROBILIN (test code = 4.0 mg/dL Normal A 5737185907) BILIRUBIN (test code = Negative Negative 5746705145) NITRITE (test code = Negative Negative 2435660860) LEUK VIGNESH (test code = Negative Negative 1476155058) RBC/HPF (test code = See_Comment [Autom ated message] 4585110925) The system [employer] generated this result transmit shelby reference range : 0 - 3 HPF. The refe rence range was not u sed to interpret th is result as normal/abnormal . WBC/HPF (test code = <1 See_Comment [Autom ated message] 2153068903) The system [employer] generated this result transmit shelby reference range : 0 - 5 HPF. The refe rence range was not u sed to interpret th is result as normal/abnormal . BACTERIA (test code = Few Negative A 3444466710) MUCOUS (test code = Slight Negative LPF A 5956611764) SQ EPITH (test code = HPF 7794908503) Lab Interpretation (test Abnormal code = 38888-3) [facility] [id number] 08:12:00 Test Item Value Reference Range Interpretation Comments POCT PREG (test code = 1605) negative On board controls acceptable with C present Line (test code = 3574) Lab Interpretation (test code = Normal 87654-5) [facility]iscoType and Screen - ONCE [id number] 21:27:21 Test Item Value Reference Range Interpretation Comments ABO & RH (test code A Positive Performe d at [facility] = 20) Laboratory Serv [facility] [place] [id number] Free: [phone] A No. [id number] IAT (test code = Negative Performed a t [facility] 1185) Laboratory Serv [facility] Blood [facility] [place] [address] Free: [phone] A No. [id number] [facility] FriscoABORH [id number] 21:09:53 Test Item Value Reference Range Interpretation Comments ABO & RH (test code A Positive Performe d at [facility] = 20) Laboratory Serv [facility] Blood [facility] [place] [address] Free: [phone] A No. [id number] [facility] BHCG (QUANTITATIVE)2021-02-18 20:38:20 Test Item Value Reference Range Interpretation Comments BETA HCG (test See_Comment [Automated m essage] code = The system [employer] 4320307814) generated this result transmit shelby reference range : Non- fe male and male patien ts: <5 mIU/mL. The reference range was not used to interpret this result as normal/abnormal . SHERRI (test code Gestational Age ? ? = SHERRI) ?Range (mIU/mL) 1-10 ?Weeks ?04-39583470-21 Weeks ?52591-58719049-71 Weeks ?8236-82040135-75 Weeks ?5162-529216 Biotin has been reported to cause a negative bias, interpret results relative to patient's use of biotin. [facility] with [id number] 20:37:25 Test Item Value Reference Range Interpretation Comments WBC (test code = See_Comment [Automated 6594-2) message] The sy stem which generated this result transmitted reference range : 4.30 - 11.10 10*3/?L. The reference range was not used to interpret this result as normal/abnormal . RBC (test code = See_Comment [Automated 774-8) message] The sy stem which generated this result transmitted reference range : 3.93 - 5.25 10*6/?L. The reference range was not used to interpret this result as normal/abnormal . HGB (test code = 14.5 g/dL 11.6-15.0 718-7) HCT (test code = 43.7 % 35.7-45.2 4544-3) MCV (test code = 90.7 fL 80.6-95.5 787-2) MCH (test code = 30.1 pg 25.9-32.8 785-6) MCHC (test code = 33.2 g/dL 31.6-35.1 786-4) RDW-SD (test code = 41.7 fL 39.0-49.9 90339-1) RDW-CV (test code = 12.6 % 12.0-15.5 788-0) PLT (test code = See_Comment [Automated 777-3) message] The sy stem which generated this result transmitted reference range : 166 - 358 10*3/ ?L. The reference r gerson was not used to interpret this result as normal/abnormal . MPV (test code = 10.2 fL 9.5-12.9 76475-0) NRBC/100 WBC (test See_Comment [Automat ed code = 6160583403) message] The system which generated this result transmitted reference range : 0.0 - 10.0 /100 WBCs. The refer ence range was not u sed to interpret th is result as normal/abnormal . NRBC x10^3 (test code <0.01 See_Comment [Auto mated = 9597566225) message] The s ystem which generated this result transmitted reference range : 10*3/?L. The reference range was not used to interpret this result as normal/abnormal . GRAN MAT (NEUT) % 53.6 % (test code = 770-8) IMM GRAN % (test code 0.70 % = 9087774181) LYMPH % (test code = 36.8 % 736-9) MONO % (test code = 7.0 % 5905-5) EOS % (test code = 1.4 % 713-8) BASO % (test code = 0.5 % 706-2) GRAN MAT x10^3(ANC) 5.92 10*3/uL 1.88-7.09 (test code = 6169632357) IMM GRAN x10^3 (test 0.08 10*3/uL 0.00-0.06 H code = 7715510667) LYMPH x10^3 (test code 4.08 10*3/uL 1.32-3.29 H = 731-0) MONO x10^3 (test code 0.78 10*3/uL 0.33-0.92 = 742-7) EOS x10^3 (test code = 0.16 10*3/uL 0.03-0.39 711-2) BASO x10^3 (test code 0.06 10*3/uL 0.01-0.07 = 704-7) Lab Interpretation Abnormal (test code = 00155-8) [facility] Metabolic Panel (NA, K, CL, CO2, GLUCOSE, BUN, CREATININE, CA)2021-02-18 20:17:52 Test Item Value Reference Range Interpretation Comments NA (test code = 138 mmol/L 135-145 5068186639) K (test code = 4.4 mmol/L 3.5-5.0 9404131009) CL (test code = 106 mmol/L 98-108 5973370786) CO2 TOTAL (test code = 26 mmol/L 23-31 4151442308) AGAP (test code = 2-16 5574466065) BUN (test code = 11 mg/dL 7-23 1255675485) GLUCOSE (test code = 106 mg/dL 70-110 8705362493) CREATININE (test code 0.71 mg/dL 0.50-1.04 = 9969025574) CALCIUM (test code = 9.4 mg/dL 8.6-10.6 3731347608) eGFR Calculation mL/min/1.73m2 (Non-) (test code = 6410503649) eGFR Calculation mL/min/1.73m2 () (test code = 6116118125) SHERRI (test code = SHERRI) Association of Glomerular Filtration Rate (GFR) and Staging of Kidney Disease* + -+ + ---+| GFR (mL/min/1.73 m2) ?| With Kidney Damage ?| ?Without Kidney Damage+ -------+ ------+ ---------+| ?>90 ?| ?Stage one ?| ? Normal ?+ --+ -+ ----+| ?60-89 ?| ?Stage two ?| ? Decreased GFR ? + -+ + ---+| ?30-59 ?| ?Stage three ?| ? Stage three ? + -+ + ---+| ?15-29 ?| ?Stage four ? | ? Stage four ?+ --+ -+ ----+| ?<15 (or dialysis) ? ?| ?Stage five ? | ? Stage five ?+ --+ -+ ----+ *Each stage assumes the associated GFR level has been in effect for at least three months. ?Stages 1 to 5, with or without kidney disease, indicate chronic kidney disease. Notes: Determination of stages one and two (with eGFR >59mL/min/1.73 m2) requires estimation of kidney damage for at least three months as defined by structural or functional abnormalities of the kidney, manifested by either:Pathological abnormalities or Markers of kidney damage (including abnormalities in the composition of the blood or urine or abnormalities in imaging tests). [facility] FIRST TRIMESTER LESS THAN 14 WEEKS WITH [id number] 19:58:47HISTORY: Positive test with vaginal bleeding and abdominal pain. TECHNIQUE: Both transabdominal and transvaginal pelvic ultrasound studieswere completed by the technologist. FINDINGS: Uterus is of normal size and shape, measures approximately 7.2 x3.0 x 2.8 cm in size with homogeneous echo texture of the myometrium. Smallnabothian cysts are seen in the cervix, the largest is 7 mm . Endometrialecho complex is 3.5 mm. No free fluid in the cul-de-sac. Right ovary is 2.9 x 1.8 x 1.5 cm (4.19 ml) and left ovary is 3.7 x 1.6 x1.8 cm (5.69 ml). Subcentimeter sized follicles are seen in the leftovary. CONCLUSIONS: Normal pelvic ultrasound study. No intrauterine pregnancydetected, therefore, exact location of the is uncertain at thistime. Please correlate with serial beta-hCG levels.[facility], Radiant Results Inft User - 02/18/2021 2:59 PM CDTHISTORY: Positive test with vaginal bleeding and abdominal pain.TECHNIQUE: Both transabdominal and transvaginal pelvic ultrasound studieswere completed by the technologist.FINDINGS: Uterus is of normal size and shape, measures approxima tely 7.2 x3.0 x 2.8 cm in size with homogeneous echo texture of the myometrium. Smallnabothian cystsare seen in the cervix, the largest is 7 mm . Endometrialecho complex is 3.5 mm. No free fluid in the cul-de-sac. Right ovary is 2.9 x 1.8 x 1.5 cm (4.19 ml) and left ovary is 3.7 x 1.6 x1.8 cm (5.69 ml). Subcentimeter sized follicles are seen in the left ovary.CONCLUSIONS: Normal pelvic ultrasound study. No intrauterine pregnancydetected, therefore, exact location of the is uncertain at thistime. Please correlate with serial beta-hCG levels.[facility] FriscoUrinalysis2021-03-30 19:35:08 Test Item Value Reference Range Interpretation Comments APPEARANCE (test code = Hazy Clear A 8105373632) COLOR (test code = Yellow Yellow 0694544565) PH (test code = 4.8-8.0 9470369671) SP GRAVITY (test code = 1.003-1.030 6922634358) GLU U QUAL (test code = Normal Normal 4981692053) BLOOD (test code = 3+ Negative A 2706125293) KETONES (test code = Negative Negative 6704536023) PROTEIN (test code = Negative Negative 2887-8) UROBILIN (test code = Normal Normal 2355674489) BILIRUBIN (test code = Negative Negative 9266752891) NITRITE (test code = Negative Negative 5101448498) LEUK VIGNESH (test code = Negative Negative 5694263008) RBC/HPF (test code = See_Comment H [Autom ated message] 5245106002) The system [employer] generated this result transmitted ref erence range: 0 - 3 HP F. The reference range was not used to int erpret this result as normal/abnormal . WBC/HPF (test code = See_Comment [Autom ated message] 8489176309) The system [employer] generated this result transmitted ref erence range: 0 - 5 HP F. The reference range was not used to int erpret this result as normal/abnormal . BACTERIA (test code = Few Negative A 1954068772) MUCOUS (test code = Slight Negative LPF A 6292399016) SQ EPITH (test code = HPF 1492948827) CA OXALATE (test code = See_Comment H [Au tomated message] 7693755298) The system [employer] generated this result transmitted ref erence range: <=1 HPF. The reference range was not used to int erpret this result as normal/abnormal . Lab Interpretation (test Abnormal code = 17187-4) [facility]iscoPOCT [id number] 19:09:00 Test Item Value Reference Range Interpretation Comments POCT PREG (test code = 1605) positive On board controls acceptable with positive C Line (test code = 3574) POCT PREG LOT # (test code = 3575) [id number] POCT PREG TEST DATE (test 10-21-2022 code = 3576) Lab Interpretation (test code = Normal 83002-1) [facility]"
[2021-10-10 13:49] LABS: Urine Blood Trace-lysed (Negative); Urine Glucose Negative (Negative); Urine Protein Negative (Negative); Urine Specific Gravity 1.025 (1.005-1.030)
[2021-10-10 14:28] LABS: Urine Specific Gravity/Preg 1.025 (1.005-1.030)
[2021-10-10] MEDS ORDERED: KETOROLAC 30 MG/ML INJ ONE (14:43)
[2021-10-10] MEDS ORDERED: NA CHLORIDE 0.9% 1,000 ML ONE (14:44)
[2021-10-10] MEDS ORDERED: ONDANSETRON 4 MG/2 ML VIAL ONE (14:44)
[2021-10-10 14:59] LABS: Basophils % 0.5 % (0-1.3); Hematocrit 41.4 % (36.0-45.0); Lymphocytes % 11.7 % (15.3-44.8); MPV 8.5 fL (7.6-11.3)
[2021-10-10 15:14] LABS: Potassium 4.4 mmol/L (3.5-5.1)
--- NOTE | 2021-10-10 16:01 | RAD REPORT ---
EXAM DESCRIPTION: CT - Abdomen Pelvis W Contrast - 10/10/2021 3:42 pm CLINICAL HISTORY: Abdominal pain COMPARISON: March 2021 TECHNIQUE: Computed axial tomography of the abdomen pelvis was obtained. 100 cc Isovue-300 was admin istered intravenously. Oral contrast was not requested which limits evaluation of bowel. All CT scans are performed using dose optimization technique as appropriate and may include automated exposure control or mA/KV adjustment according to patient size. FINDINGS: Mild fatty liver. Spleen, pancreas, adrenal and kidneys appear unremarkable. There is no evidence of diverticulitis. Normal appendix. Small umbilical hernia 3.5 centimeter left ovarian cyst without significant free fluid. A 14 millimeter low-density area wit hin the lower uterine segment/cervix IMPRESSION: 3.5 centimeter left ovarian cyst without significant free fluid A 14 millimeter low-density area within the lower uterine segment/cervix probably benign. Follow-up u ltrasound in six months recommended for re-evaluation .
--- NOTE | 2021-10-10 16:07 | EDPHYS ---
Physician Documentation [facility] Name: Angelo Harrison Age: 21 yrs Sex: Female : 2000 Arrival Date: 10/10/2021 Time: 13:22 Bed 14 Private MD: ED Physician Wesly Lawrence HPI: 10/10 16:06 This 21 yrs old Female presents to ER via Ambulatory with complaints of kb Nausea, Abdominal Cramping. 16:06 The patient presents with abdominal pain in the lower abdomen. Onset: The kb symptoms/episode began/occurred today, at 12:00. The symptoms do not radiate. Associated signs and symptoms: Pertinent positives: nausea. The symptoms are described as constant. Modifying factors: The symptoms are alleviated by nothing, the symptoms are aggravated by nothing. Severity of pain: At its worst the pain was moderate in the emergency department the pain is unchanged. The patient has not experienced similar symptoms in the past. The patient has not recently seen a physician. Pt reports abd pain that started around noon. States she thought it was menstrual cramps or maybe she needed to use the restroom, but she was unable. Started working and the pain returned causing her to have nausea and dizziness. . 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 - Social history:: Smoking status: . ROS: 16:05 Constitutional: Negative for fever, chills, and weight loss. kb 16:05 Abdomen/GI: Positive for abdominal pain, nausea, Negative for vomiting, diarrhea, constipation. 16:05 All other systems are negative. Exam: 16:05 Constitutional: This is a well developed, well nourished patient who is awake, alert, kb and in no acute distress. Head/Face: Normocephalic, atraumatic. ENT: Moist Mucous membranes Cardiovascular: Regular rate and rhythm with a normal S1 and S2. No gallops, murmurs, or rubs. No pulse deficits. Respiratory: Respirations even and unlabored. No increased work of breathing, no retractions or nasal flaring. Skin: Warm, dry with normal turgor. Normal color. MS/ Extremity: Pulses equal, no cyanosis. Neurovascular intact. Full, normal range of motion. Neuro: Awake and alert, GCS 15, oriented to person, place, time, and situation. Moves all extremities. Normal gait. Psych: Awake, alert, with orientation to person, place and time. Behavior, mood, and affect are within normal limits. 16:05 Abdomen/GI: Inspection: abdomen appears normal, Bowel sounds: normal, in all quadrants, Palpation: soft, in all quadrants, mild abdominal tenderness, in the right lower quadrant and left lower quadrant. Vital Signs: 13:36 BP 125 / 92; Pulse 101; Resp 16; Temp 98.7; Pulse Ox 97% on R/A; Weight 108.86 kg; ss Height 5 ft. 2 in. (157.48 cm); Pain 7/10; 15:07 BP 128 / 81; Pulse 87; Resp 15; Pulse Ox 98% ; jl7 16:00 BP 118 / 75; Pulse 87; Resp 15; Pulse Ox 99% ; jl7 13:36 Body Mass Index 43.90 (108.86 kg, 157.48 cm) ss MDM: 14:18 Patient medically screened. kb 16:04 Data reviewed: vital signs, nurses notes. Data interpreted: Pulse oximetry: on room air kb is 98 %. Interpretation: normal. Counseling: I had a detailed discussion with the patient and/or guardian regarding: the historical points, exam findings, and any diagnostic results supporting the discharge/admit diagnosis, lab results, radiology results, the need for outpatient follow up, an OB/Gyne specialist, to return to the emergency department if symptoms worsen or persist or if there are any questions or concerns that arise at home. 10/10 13:49 Order name: Urine Dipstick-Ancillary; Complete Time: 13:56 EDMS 10/10 13:52 Order name: Urine --Ancillary (enter results); Complete Time: 14:32 ss 10/10 14:40 Order name: Basic Metabolic Panel; Complete Time: 15:22 kb 10/10 14:40 Order name: CBC with Diff; Complete Time: 15:03 kb 10/10 14:40 Order name: CT Abd/Pelvis - IV Contrast Only; Complete Time: 16:03 kb 10/10 13:39 Order name: Urine Dipstick-Ancillary (obtain specimen); Complete Time: 13:51 kb 10/10 13:39 Order name: Urine Test (obtain specimen); Complete Time: 13:51 kb 10/10 14:40 Order name: IV Saline Lock; Complete Time: 15:06 kb 10/10 14:40 Order name: Labs collected and sent; Complete Time: 15:06 kb Administered Medications: 14:55 Drug: Zofran (Ondansetron) 4 mg Route: IVP; Site: right antecubital; jl7 15:38 Follow up: Response: No adverse reaction jl7 14:58 Drug: NS 0.9% 1000 ml Route: IV; Rate: 1000 ml; Site: right antecubital; jl7 16:15 Follow up: Response: No adverse reaction; IV Status: Completed infusion; IV Intake: jl7 800ml 14:58 Drug: Ketorolac 30 mg Route: IVP; Site: right antecubital; jl7 15:38 Follow up: Response: No adverse reaction; Pain is decreased jl7 Disposition: 17:59 Co-signature as Attending Physician, Wesly Lawrence MD I agree with the assessment and kdr plan of care. Disposition Summary: 10/10/21 16:07 Discharge Ordered Location: Home kb Condition: Stable kb Diagnosis - Other ovarian cysts kb Followup: kb - With: Emergency Department - When: As needed - Reason: Worsening of condition Followup: kb - With: Private Physician - When: 2 - 3 days - Reason: Recheck today's complaints, Continuance of care, Re-evaluation by your physician Discharge Instructions: - Discharge Summary Sheet kb - Ovarian Cyst, [id number] kb Forms: - Medication Reconciliation Form kb - Thank You Letter kb - Antibiotic Education kb - Prescription Opioid Use kb Prescriptions: - Diclofenac Sodium 75 mg Oral tablet,delayed release (DR/EC) - take 1 tablet by ORAL route 2 times per day As needed; 30 tablet; Refills: 0, kb Product Selection Permitted Signatures: Dispatcher [employer] Lina Cardoza, PAUL-Jocelynn MILLER-Wesly Russell MD MD kdr Smirch, Shelby, RN RN Danny Morales RN RN jl7
--- NOTE | 2021-10-10 16:07 | ER ---
Nurse's Notes [facility] Name: Angelo Harrison Age: 21 yrs Sex: Female : 2000 Arrival Date: 10/10/2021 Time: 13:22 Bed 14 Private MD: Diagnosis: Other ovarian cysts Presentation: 10/10 13:36 Chief complaint: Patient states: cramping bad in pelvic area today, got dizzy and ss started sweating , denies vaginal bleeding, LBM was last night and was normal. Coronavirus screen: At this time, the client does not indicate any symptoms associated with coronavirus-19. Ebola Screen: Patient negative for fever greater than or equal to 101.5 degrees Fahrenheit, and additional compatible Ebola Virus Disease symptoms Patient denies exposure to infectious person. Patient denies travel to an Ebola-affected area in the 21 days before illness onset. No symptoms or risks identified at this time. Initial Sepsis Screen: Does the patient meet any 2 criteria? No. Patient's initial sepsis screen is negative. Does the patient have a suspected source of infection? No. Patient's initial sepsis screen is negative. Risk Assessment: Do you want to hurt yourself or someone else? Patient reports no desire to harm self or others. Onset of symptoms was October 10, 2021. 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 - Social history:: Smoking status: . Screenin:07 Abuse screen: Denies threats or abuse. Denies injuries from another. Nutritional jl7 screening: No deficits noted. Tuberculosis screening: No symptoms or risk factors identified. Fall Risk IV access (20 points). Total Allison Fall Scale indicates No Risk (0-24 pts). Assessment: 14:30 General: Appears in no apparent distress. uncomfortable, Behavior is calm, cooperative, jl7 appropriate for age. Pain: Complains of pain in left lower quadrant and right lower quadrant Pain currently is 7 out of 10 on a pain scale. Neuro: Level of Consciousness is awake, alert, obeys commands, Oriented to person, place, time, situation. Cardiovascular: Patient's skin is warm and dry. Respiratory: Airway is patent Respiratory effort is even, unlabored, Respiratory pattern is regular, symmetrical. GI: Abdomen is non-distended, obese. Derm: Skin is pink, warm \T\ dry. 15:35 Reassessment: Pt reports decreased pain, rated 5/10 at this time. jl7 Vital Signs: 13:36 BP 125 / 92; Pulse 101; Resp 16; Temp 98.7; Pulse Ox 97% on R/A; Weight 108.86 kg; ss Height 5 ft. 2 in. (157.48 cm); Pain 7/10; 15:07 BP 128 / 81; Pulse 87; Resp 15; Pulse Ox 98% ; jl7 16:00 BP 118 / 75; Pulse 87; Resp 15; Pulse Ox 99% ; jl7 13:36 Body Mass Index 43.90 (108.86 kg, 157.48 cm) ED Course: 13:22 Patient arrived in ED. mr 13:25 Jesse Fierroistin, [facility] kb 13:25 Wesly Lawrence MD is Attending Physician. kb 13:38 Triage completed. ss 13:38 Arm band placed on. ss 14:16 Danny Perkins, MONIKA is Primary Nurse. jl7 14:55 Initial lab(s) drawn, by ED staff, sent to lab. Inserted saline lock: 20 gauge in right jl7 in left antecubital area, using aseptic technique. Blood collected. 15:07 Patient has correct armband on for positive identification. Bed in low position. Call jl7 light in reach. Side rails up X 1. Pulse ox on. NIBP on. 15:42 CT Abd/Pelvis - IV Contrast Only In Process Unspecified. EDMS 16:23 No provider procedures requiring assistance completed. IV discontinued, intact, jl7 bleeding controlled, No redness/swelling at site. Pressure dressing applied. Administered Medications: 14:55 Drug: Zofran (Ondansetron) 4 mg Route: IVP; Site: right antecubital; jl7 15:38 Follow up: Response: No adverse reaction jl7 14:58 Drug: NS 0.9% 1000 ml Route: IV; Rate: 1000 ml; Site: right antecubital; jl7 16:15 Follow up: Response: No adverse reaction; IV Status: Completed infusion; IV Intake: jl7 800ml 14:58 Drug: Ketorolac 30 mg Route: IVP; Site: right antecubital; jl7 15:38 Follow up: Response: No adverse reaction; Pain is decreased jl7 Intake: 16:15 IV: 800ml; Total: 800ml. jl7 Outcome: 16:07 Discharge ordered by MD. south 16:23 Discharged to home ambulatory. jl7 16:23 Condition: stable 16:23 Discharge instructions given to patient, Instructed on discharge instructions, follow up and referral plans. medication usage, Demonstrated understanding of instructions, follow-up care, medications, Prescriptions given X 1. 16:24 Patient left the ED. jl7 Signatures: Dispatcher [employer] EDMS Lina Fierro, [employer]POR[employer] ACCOUNTING MANAGER-Latoya Downs Shelby, RN RN ss Leal, Jahala, RN RN jl7
[2021-10-10 16:30] VITALS: TEMP 98.7
[2021-10-10 16:33] VITALS: BP 118/75; O2SAT 99
== END 2021-10-10 16:24 | disposition home or self-care (01) ==
LOC: ER 13:19
DX: N83.299 Other ovarian cyst, unspecified side (principal); Z91.018 Allergy to other foods
CPT/HCPCS: 36415; 74177; 80048; 81003; 81025; 85025; 96361; 96374; 96375; 99284; J2405; J7030; Q9967